=== PATIENT | male | born 1995 | race Caucasian/White ===

== ENCOUNTER 2020-08-20 15:39 | Emergency (ER) | payer OTHER ==
[~2020-08-20] VITALS: Ht 177.8 cm; Wt 59.4 kg
[2020-08-20 15:51] VITALS: BP 133/72
--- NOTE | 2020-08-20 16:20 | NUR ---
PT AMBULATED TO BED 7
--- NOTE | 2020-08-20 16:25 | NUR ---
XRAY AT BEDSIDE
--- NOTE | 2020-08-20 16:28 | NUR ---
25 Y/O MALE C/O LEFT FOOT PAIN S/P OTTOMAN FALLING ON TOP OF FOOT LAST NIGHT. CMS+, NO OBVIOUS DEFORMITIES NOTED. SKIN INTACT WITH MODERATE ECCHYMOSIS ON SECOND DIGIT. PATIENT ABLE TO AMBULATE WITH STEADY GAIT
[2020-08-20] MEDS: KETOROLAC 30 MG/ML VIAL IM ONE (16:33)
[2020-08-20 16:58] VITALS: BP 133/72
== END 2020-08-20 16:51 | disposition home or self-care (01) ==
LOC: MED 15:39
DX: M79.675 Pain in left toe(s) (principal); W22.03XA Walked into furniture, initial encounter; Y93.89 Activity, other specified; Y92.89 Other specified places as the place of occurrence of the external cause; Y99.8 Other external cause status
CPT/HCPCS: 73660; 96372; 99283; J1885; Q0092